=== PATIENT | male | born 1960 | race Caucasian/White ===

== ENCOUNTER → 2016-11-13 08:28 | Outpatient (CLI) | payer OTHER ==
[2013-02-01 06:49] VITALS: BMI 31.9
[~2016-11-13 08:28] MED LIST: COLAZAL750 MG; DEXILANT60 MG PO; NORCO 10/325 TA1 TA1 PO; NULEV0.125 MG PO
[2016-11-13 09:34] LABS: ALBUMIN 3.5 g/dL (3.4-5.0); BILIRUBIN - DIRECT 0.13 mg/dL (0.00-0.30); BILIRUBIN - INDIRECT 0.57 mg/dL (0.00-1.00); BILIRUBIN - TOTAL 0.7 mg/dL (0.2-1.3)
== END | disposition home or self-care (01) ==
LOC: D.US 08:28
PROVIDERS: Internal Medicine Gastroenterology
DX: K76.0 Fatty (change of) liver, not elsewhere classified (principal)

== ENCOUNTER → 2017-05-15 08:43 | Outpatient (CLI) | payer OTHER ==
[2013-02-01 06:49] VITALS: BMI 31.9
[2017-05-15 09:26] LABS: ALBUMIN 3.5 g/dL (3.4-5.0); BILIRUBIN - DIRECT 0.06 mg/dL (0.00-0.30); BILIRUBIN - INDIRECT 0.3 mg/dL (0.00-1.00); BILIRUBIN - TOTAL 0.36 mg/dL (0.2-1.3); PROTEIN - SERUM 7.3 g/dL (6.4-8.2)
== END | disposition home or self-care (01) ==
LOC: D.US 08:43
PROVIDERS: Internal Medicine Gastroenterology
DX: K76.0 Fatty (change of) liver, not elsewhere classified (principal)

== ENCOUNTER → 2017-11-13 08:24 | Outpatient (CLI) | payer OTHER ==
[2013-02-01 06:49] VITALS: BMI 31.9
[2017-11-13 09:49] LABS: ALBUMIN 3.5 g/dL (3.4-5.0); BILIRUBIN - DIRECT 0.15 mg/dL (0.00-0.30); BILIRUBIN - INDIRECT 0.4 mg/dL (0.00-1.00); BILIRUBIN - TOTAL 0.55 mg/dL (0.2-1.3); PROTEIN - SERUM 7.2 g/dL (6.4-8.2)
== END | disposition home or self-care (01) ==
LOC: D.US 08:24
PROVIDERS: Internal Medicine Gastroenterology
DX: K76.0 Fatty (change of) liver, not elsewhere classified (principal)

== ENCOUNTER → 2018-05-17 08:32 | Outpatient (CLI) | payer OTHER ==
[2013-02-01 06:49] VITALS: BMI 31.9
[~2018-05-17 08:32] MED LIST changes: +BACLOFEN20 M1; +FLAGYL500 MG; +NORCO 10-325 TA1 TAB PO; +PHENERGAN25 M1 PO; +ZYLOPRIM100 MG PO
[2018-05-17 09:51] LABS: ALBUMIN 3.7 g/dL (3.4-5.0); BILIRUBIN - DIRECT 0.08 mg/dL (0.00-0.30); BILIRUBIN - INDIRECT 0.23 mg/dL (0.00-1.00); BILIRUBIN - TOTAL 0.31 mg/dL (0.2-1.3); PROTEIN - SERUM 7.4 g/dL (6.4-8.2)
[2018-05-28 04:03] VITALS: BMI 34.5
== END | disposition home or self-care (01) ==
LOC: D.US 08:32
PROVIDERS: Internal Medicine Gastroenterology
DX: K76.0 Fatty (change of) liver, not elsewhere classified (principal)

== ENCOUNTER 2018-05-27 10:30 | Day surgery (SDC) | payer OTHER ==
[~2018-05-27] VITALS: Ht 182.9 cm; Wt 115.5 kg
--- NOTE | ~2018-05-27 | OP ---
PATIENT NAME: GERALDINE HUERTA MEDICAL RECORD: [id number] LOCATION:[id number] ADMISSION DATE: SURGEON: ANTONIO CAIN MD DATE OF OPERATION: 05/27/2018 PREOPERATIVE DIAGNOSES: 1. Bleeding, mixed internal and external hemorrhoids. 2. Possible anal fissure. 3. Ulcerative colitis. 4. Gout. POSTOPERATIVE DIAGNOSES: 1. Bleeding, mixed internal and external hemorrhoids. 2. Ulcerative colitis. 3. Gout. PROCEDURE: Anal exam under anesthesia with a 2-column hemorrhoidectomy. SURGEON: Antonio Cain MD REPORT OF PROCEDURE: The patient was placed in lithotomy position and the perianal region was prepped and draped in sterile fashion. A 360-degree inspection was performed of the anus and showed there was very large bilateral internal and external hemorrhoids. The internal component on the left side had almost necrotic swollen appearance to it. A 2-0 chromic was placed at the base of this. We then excised the hemorrhoid down to the sphincteric musculature all the way out to the anoderm. Once this hemorrhoid was completely excised, any bleeding that was found was treated with electrocautery or 3-0 silk ties. We then ran a 2-0 chromic from the distal rectum in a locking fashion out to the anoderm. We then approached the right side of the anus where the smaller hemorrhoidal component was present. It was still large in size. A 2-0 chromic was placed at the base of this and the large hemorrhoid was excised using electrocautery down to the sphincteric musculature all the way out to the anoderm. We then controlled any bleeding using electrocautery. The 2-0 chromic was used to close the opening in a running locked fashion. At the conclusion of the case, there was no sign of any active bleeding. We irrigated out the anus thoroughly with normal saline and then inserted a piece of Gelfoam dipped in Americaine, 10 mL of 0.5% Marcaine with epinephrine was infused into the surrounding tissues and the wound was dressed appropriately. COMPLICATIONS: None. CONDITION: Stable. ANESTHESIA: General endotracheal and local. BLOOD LOSS: 100 mL. 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
[~2018-05-27 10:30] MED LIST changes: -BACLOFEN20 M1; -FLAGYL500 MG; -NORCO 10-325 TA1 TAB PO; -PHENERGAN25 M1 PO; -ZYLOPRIM100 MG PO
[2018-05-27] MEDS ORDERED: ZYLOPRIM100 MG PO (11:14)
[2018-05-27] MEDS ORDERED: BACLOFEN20 M1 (11:15)
[2018-05-27] MEDS ORDERED: FLAGYL500 MG (11:16)
[2018-05-27 11:27] VITALS: BP 177/103; BMI 34.5
[2018-05-27 12:09] LABS: BASOPHILS 0.4 % (0-2); EOSINOPHILS 1.9 % (0-7); HEMATOCRIT 42.7 % (42.0-54.0); HEMOGLOBIN 13.5 g/dL (13.5-17.5); IMMATURE GRANULOCYTES 0.1 % (0-5); MCH 27.4 pg (26.0-34.0); MCHC 31.6 g/dL (31.0-37.0); MCV 86.8 fL (80.0-100.0); MEAN PLATELET VOLUME 9.2 fL (7.4-10.4); MONOCYTES 9.4 % (2-11); NEUTROPHILS 66.2 % (40-80); PLATELET COUNT 168 10x3/uL (130-400); RBC 4.92 10x6/uL (4.20-6.10)
[2018-05-27 12:25] LABS: ANION GAP 8.7 mmol/L (8-16); CALCIUM 8.5 mg/dL (8.5-10.1); CARBON DIOXIDE 31.4 mmol/L (21.0-32.0); CREATININE - SERUM 1.1 mg/dL (0.6-1.3); POTASSIUM - SERUM 4.1 mmol/L (3.5-5.1)
[2018-05-27] MEDS ORDERED: PHENERGAN25 M1 PO (18:46)
[2018-05-27] MEDS ORDERED: NORCO 10-325 TA1 TAB PO (18:46)
[2018-05-27 20:04] VITALS: BP 146/76
[2018-05-28 04:00] VITALS: BP 150/79
[2018-05-28 04:03] VITALS: BP 146/76; Ht 182.9 cm; Wt 115.5 kg
[2018-05-28 09:15] VITALS: BP 130/59
== END 2018-05-28 11:00 | disposition home or self-care (01) ==
LOC: D.OPS 10:30 → D.MS 19:36 → D.OPS 05-28 11:00
PROVIDERS: Anesthesiology
DX: K64.8 Other hemorrhoids (principal); K64.4 Residual hemorrhoidal skin tags; K51.90 Ulcerative colitis, unspecified, without complications; M10.9 Gout, unspecified; Z01.812 Encounter for preprocedural laboratory examination